=== PATIENT | male | born 1935 | race Hispanic/Latino ===

== ENCOUNTER 2019-01-15 05:35 | Day surgery (SDC) | payer OTHER ==
[2019-01-13 14:19] VITALS: BP 112/56
[2019-01-13 14:25] LABS: EOSINOPHILS % (AUTO) 4.2 % (0.0-8.0); HEMATOCRIT 23.7 % (42-54); MEAN CORPUSCULAR HEMOGLOBIN 29.9 pg (27.0-33.0); MEAN CORPUSCULAR HGB CONC 32.7 g/dL (32.0-36.0); MEAN CORPUSCULAR VOLUME 91.5 fL (79-99); MONOCYTES % (AUTO) 7.1 % (3.0-13.0); NEUTROPHILS % (AUTO) 73.7 % (40.0-77.0); NUCLEATED RED BLOOD CELLS 0.1 % (0.0-0.19); PLATELET COUNT (AUTO) 229 K/uL (130-400); RED BLOOD CELL COUNT(AUTO) 2.59 MIL/uL (4.50-6.20); RED CELL DISTRIBUTION WIDTH 18.4 % (11.0-15.5); WHITE BLOOD COUNT (AUTO) 5.1 K/uL (4.8-10.8)
[2019-01-13 14:36] LABS: CREATININE 1.6 mg/dL (0.5-1.5); INR 1.04 (0.85-1.15); PARTIAL THROMBOPLASTIN TIME 31.3 SEC (26.3-35.5); POTASSIUM 4.6 mmol/L (3.5-5.1); PROTHROMBIN TIME 10.9 SEC (9.6-11.6)
--- NOTE | 2019-01-13 14:47 | NUR ---
PT PENDING NEW ORDER FROM [facility] FOR [facility]. ORDER INCORRECT. [facility]HANG FAX.
--- NOTE | 2019-01-14 14:36 | NUR ---
SPOKE TO UBALDO INMAN ABOUT ABNORMAL LABS, PER UBALDO OK TO PROCEED. NO NEW ORDERS.
[~2019-01-15] VITALS: Ht 175.3 cm; Wt 118.8 kg
[2019-01-15] VITALS (11 sets, daily range): BP systolic 103–132; BP diastolic 41–58
[~2019-01-15 05:35] MED LIST: ALBU8.5H8 IH; ESCI10TA54 PO; FERR325T22 PO; FLUT1BLS3 IH; FOLI1TAB15 PO; FURO40TA5 PO; INDO50CA12 PO; IPRA3AMP24 IH; LEVO75TA10 PO; SPIR25TA6 PO; SUCR1TAB2 PO; vitamin d PO
[2019-01-15] MEDS ORDERED: SODIUM CHLORIDE 0.9% 1000ML 1,000 ML IV ONE (06:31)
[2019-01-15] MEDS ORDERED: CEFAZOLIN SODIUM 1 GM VIAL ONE (07:25)
[2019-01-15] MEDS ORDERED: BUPIVACAINE/PF 0.25% 30ML VIAL IJ ONE (07:25)
[2019-01-15] MEDS ORDERED: LIDOCAINE HCL 1% MDV 50ML VIAL ONE (07:26)
[2019-01-15] MEDS ORDERED: FENTANYL CITRATE PF 50 MCG/1 ML 2ML VIAL ONE (08:13)
[2019-01-15] MEDS ORDERED: MIDAZOLAM HCL 1 MG/ML 2ML VIAL ONE (08:13)
[2019-01-15] MEDS ORDERED: ACETAMINOPHEN 325 MG TAB PO PRN ×2 (09:00)
[2019-01-15] MEDS ORDERED: ACETAMINOPHEN-CODEINE 300/30MG TAB PO PRN ×2 (09:00)
[2019-01-15] MEDS ORDERED: FOLIC ACID 1 MG TABLET PO SCH (09:00)
[2019-01-15] MEDS ORDERED: FUROSEMIDE 40 MG TABLET PO SCH (09:00)
[2019-01-15] MEDS ORDERED: LEVOTHYROXINE 75 MCG TABLET PO SCH (09:00)
[2019-01-15] MEDS ORDERED: SUCRALFATE 1 GM TABLET PO SCH (09:00)
[2019-01-15] MEDS ORDERED: SPIRONOLACTONE 25 MG TAB PO SCH (09:00)
--- NOTE | 2019-01-15 09:02 | NUR ---
PATIENT RETURNED FROM [facility] IN NO DISTRESS, LEFT UPPER CHEST SHOWS NO ACTIVE BLEEDING OR HEMATOMA. PATIENT DENIES ANY PAIN ICE PACK APPLIED OVER DRESSING. BOTH PATIENT AND FAMILY EDUCATED ON PT BEING ON BEDREST FOR 4 HOURS. BOTH PATIENT AND FAMILY VERBALIZED UNDERSTANDING AND AGREED TO COMPLY.
--- NOTE | 2019-01-15 09:35 | NUR ---
CALLED UBALDO INMAN OF DR. MOSS TO CLARIFY ORDERS ON MEDICATIONS. ORDER CLARIFY, PER UBALDO INMAN HE WILL TALK TO VERIFY ORDERS ON LASIX AND SYNTHROID AND CALL ME BACK.
--- NOTE | 2019-01-15 11:01 | NUR ---
PATIENT IN NO DISTRESS, LEFT UPPER DRESSING IS CLEAN AND DRY, ICE PACK IN PLACE.
[2019-01-15] MEDS ORDERED: IPRATROPIUM/ALBUTEROL SULFATE 3 ML SOLUTION IH SCH (12:00)
[2019-01-15] MEDS ORDERED: CEFAZOLIN SODIUM 1 GM VIAL IVP PRN (13:00)
--- NOTE | 2019-01-15 13:10 | NUR ---
ANTIBIOTICS GIVEN PER MD ORDER VIA IV, NO SIGNS OF ALLERGIC REACTION NOTED, PATIENT STATES FEELING WELL. PATIENT ASSISTED UP TO CHAIR AND TO CHANGE. NO SIGNS OF BLEEDING NOTED TO LEFT UPPER CHEST. AT HIS SIDE
--- NOTE | 2019-01-15 13:30 | NUR ---
PATIENT DISCHARGED VIA WHEELCHAIR IN NO DISTRESS. LEFT UPPER CHEST DRESSING IS CLEAN AND DRY.
[2019-01-15] MEDS ORDERED: INDOMETHACIN 25 MG CAP PO SCH (14:00)
[2019-01-16] MEDS ORDERED: CITALOPRAM 20 MG TABLET PO SCH (09:00)
[2019-01-16] MEDS ORDERED: FERROUS SULFATE 325 MG TABLET.DR PO SCH (09:00)
[2019-01-16] MEDS ORDERED: TRELEGY ELLIPTA IH SCH (09:00)
[2019-01-16] MEDS ORDERED: ERGOCALCIFEROL (VITAMIN D2) 50,000 UNIT CAPSULE PO SCH (09:00)
== END 2019-01-15 13:30 | disposition home or self-care (01) ==
LOC: DAH 05:35
PROVIDERS: ATTEND Internal Medicine Cardiovascular Disease
DX: I48.91 Unspecified atrial fibrillation (principal); J44.9 Chronic obstructive pulmonary disease, unspecified; Z79.899 Other long term (current) drug therapy; I49.5 Sick sinus syndrome; G47.33 Obstructive sleep apnea (adult) (pediatric); I50.32 Chronic diastolic (congestive) heart failure; Z98.890 Other specified postprocedural states
CPT/HCPCS: 33227; 36415; 80048; 85025; 85610; 85730; 88305; 93005; 94640; 94664; A4218 ×2; A4606; C1786; J0690 ×3; J2250; J3010; J3490 ×2; J7030; 99156; 99157

== ENCOUNTER → 2020-11-23 | Outpatient (CLI) | payer OTHER ==
[~2020-11-23] MED LIST changes: +ESCI-8 PO; -ESCI10TA54 PO; -INDO50CA12 PO; +INDO50CA98 PO
== END | disposition home or self-care (01) ==
LOC: SHCH 10:50
PROVIDERS: ATTEND Internal Medicine Cardiovascular Disease
DX: I50.32 Chronic diastolic (congestive) heart failure (principal)
CPT/HCPCS: 93306; 93356

== ENCOUNTER → 2022-10-17 | Outpatient (CLI) | payer OTHER ==
[2022-10-17 11:26] LABS: CREATININE 1.3 mg/dL (0.5-1.5); POTASSIUM 4.1 mmol/L (3.5-5.1)
== END | disposition home or self-care (01) ==
LOC: LAB 08:33
PROVIDERS: ATTEND Internal Medicine Cardiovascular Disease
DX: I11.0 Hypertensive heart disease with heart failure (principal); I48.0 Paroxysmal atrial fibrillation; I50.32 Chronic diastolic (congestive) heart failure
CPT/HCPCS: 36415; 80048; 83735; 83880